=== PATIENT | male | born 2000 | race African-American/Black ===

== ENCOUNTER 2024-03-30 19:16 | Emergency (ER) | payer OTHER, SELFPAY ==
[2024-03-30 19:26] VITALS: BP 123/87; BP 131/86; PULSE 72; PULSE 80; RESP 13; TEMP 36.4; O2SAT 100; O2SAT 94; BMI 19.5
--- NOTE | 2024-03-30 19:28 | ED.SOB ---
HPI - SOB/Dyspnea General Chief Complaint: Dyspnea Stated Complaint: SOB, asthma exacerbation, wheezy Time Seen by Provider: 03/30/24 19:20 Source: patient Mode of arrival: EMS Limitations: no limitations History of Present Illness ED Provider: james HERNÁNDEZ Narrative: Patient's history of asthma been increased shortness a breath for last 24 hours tried to use inhaler and nebulizer treatment earlier today but still feeling short of breath no fever no chills history of same in the past with asthma Related Data Previous Rx's ?Medication ?Instructions ?Recorded albuterol sulfate 2.5 mg/3 mL 2.5 mg (3 mL) inhalation Q4-6H PRN 03/30/24 (0.083 %) solution for nebulization shortness of breath or wheezing #90 mL prednisone 20 mg tablet 40 mg (2 x 20 mg) PO DAILY #10 tabs 03/30/24 Allergies Allergy/AdvReac Type Severity Reaction Status Date / Time No Known Allergies Allergy Verified 03/30/24 19:28 Review of Systems Review of Systems: Yes all other systems are reviewed and are negative [facility] Social History Social History Smoked in Last 30 Days: No Use of substances other than those prescribed or required for medical reasons: Yes Substance Use Type: Marijuana Substance Use Frequency: Daily Last Used Substance: Hours (ago) Advance Directives: No Advance Directives Information Provided: No Do you have a plan to hurt others: No Plan Physical Exam Vital Signs: Vital Signs: Last Vital Signs Temp 97.8 F 03/30/24 22:09 Pulse 71 03/30/24 22:09 Resp 16 03/30/24 22:09 BP 118/64 03/30/24 22:09 Pulse Ox 99 03/30/24 22:09 O2 Del Method Room Air 03/30/24 22:09 BMI result Body Mass Index 19.5 Appearance: Alert. Oriented X3. No acute distress. ENT: Pharynx normal. Oral Mucosa moist Neck: Normal inspection. Neck supple. CVS: Normal heart rate and rhythm. Pulses normal. Respiratory: No respiratory distress. Equal air entry bilateral, bilateral wheezing and rhonchi no rales Skin: Skin warm and dry. Normal skin color. Normal skin turgor. Extremities: No lower extremity edema. Neuro: Oriented X 3. Medications Administered Discontinued Medications Generic Name Dose Route Start Last Admin Trade Name Jason PRN Reason Stop Dose Admin Albuterol Sulfate 7.5 mg/ 10 mg 03/30/24 19:55 03/30/24 19:58 Albuterol Sulfate 2.5 mg INHALE 03/30/24 19:56 10 mg ONCE ONE Administration Sodium Chloride 1,000 mls @ 999 mls/hr 03/30/24 19:23 03/30/24 19:41 Ns IV 03/30/24 20:23 999 mls/hr .Q1H1M ONE Administration Magnesium Sulfate 2 gm in 50 mls @ 150 mls/hr 03/30/24 19:23 03/30/24 19:41 Magnesium Sulfate/H2o IV 03/30/24 19:42 150 mls/hr ONCE ONE Administration Methylprednisolone Sodium Succinate 125 mg 03/30/24 19:23 03/30/24 19:41 Methylprednisolone Sod Succ 125 Mg/2 Ml Vial IVPUSH 03/30/24 19:24 125 mg ONCE ONE Administration Medical Decision Making Medical Decision Making [facility] Narrative: Patient has acute asthma attack responded to nebulizer treatment IV magnesium and Solu-Medrol feeling much better saturating 99 % at room air discharge patient home on prednisone advised to continue nebulizer treatment at home Lab Data [facility] Lab Attestation statement: I reviewed the patient's lab results. 03/30/24 19:38 03/30/24 19:38 Labs: Lab Results 03/30/24 Range/Units 19:38 WBC 7.6 (4.8-10.8) X10*3/uL RBC 4.63 (4.60-5.80) X10*6/uL Hgb 14.2 (14.0-18.0) g/dl Hct 39.9 L (42.0-52.0) % MCV 86.2 (80.0-98.0) fL MCH 30.7 (27.0-33.0) pg MCHC 35.6 (31.0-36.0) g/dl RDW 12.1 (11.0-16.0) % Plt Count 176 (160-400) X10*3/uL MPV 11.2 (9.4-12.4) fL Immature Gran % (Auto) 0.3 (0.0-0.4) % Neut % (Auto) 62.9 (45-73) % Lymph % (Auto) 19.7 L (20-40) % Trigg % (Auto) 9.0 (2-11) % Eos % (Auto) 7.4 H (0-4) % Baso % (Auto) 0.7 (0-2) % Lymph # (Auto) 1.5 (1.2-4.9) X10*3/uL Trigg # (Auto) 0.7 (0.1-1.2) X10*3/uL Eos # (Auto) 0.6 H (0.0-0.4) X10*3/uL Baso # (Auto) 0.1 (0.0-0.2) X10*3/uL Abs Immat Gran (auto) 0.02 (0.00-0.03) X10*3/uL Absolute Neuts (auto) 4.8 (2.0-8.3) x10*3/uL Absolute Nucleated RBC 0.000 (0.0-0.012) X10*3/uL Nucleated RBC % (auto) 0.0 (0.0-0.2) /100WBC Sodium 139 (135-145) mmol/L Potassium 3.5 (3.3-5.1) mmol/L Chloride 105 (96-108) mmol/L Carbon Dioxide 26 (22-29) mmol/L Anion Gap 12 (12-20) BUN 15 (9-16) mg/dL Creatinine 0.85 (0.5-1.4) mg/dL Estim Creat Clear Calc 116.9 Estimated GFR > 60 Random Glucose 87 (60-115) mg/dL Calcium 10.1 (8.4-10.2) mg/dL Influenza Type A (PCR) NEGATIVE (Negative) Influenza Type B (PCR) NEGATIVE (Negative) RSV RNA Qual (PCR) NEGATIVE (Negative) SARS-CoV-2 RNA (RT-PCR) NEGATIVE (Negative) Discharge Plan Discharge Clinical Impression: Asthma with exacerbation Patient Disposition: Home, Self-Care Instructions: Asthma (ED) Additional Instructions: Take medication as prescribed Use your nebulizer/inhaler as prescribed Follow up with your PCP Prescriptions: New albuterol sulfate 2.5 mg /3 mL (0.083 %) solution for nebulization 2.5 mg inhalation Q4-6H PRN (Reason: shortness of breath or wheezing) Qty: 90 0RF prednisone 20 mg tablet 40 mg PO DAILY Qty: 10 0RF Interventions: ED Discharge Assessment Last Done: 03/30/24 22:09 Discharge Date/Time: 03/30/24 22:42 Print Language: Barbadian
[2024-03-30 19:41] LABS: MANUAL DIFF FLAG NO
[2024-03-30] MEDS: Magnesium Sulfate/H2O 2 GM/50 ML PIGGYBACK IV (19:41)
[2024-03-30] MEDS: 0.9 % Sodium Chloride 1,000 ML 999 ML IV (19:41)
[2024-03-30] MEDS: methylPREDNISolone Sod Succ 125 MG/2 ML VIAL IVPUSH (19:41)
[2024-03-30 19:43] LABS: Basophils Absolute Auto 0.1 X10*3/uL (0.0-0.2); Basophils Percent Auto 0.7 % (0-2); Eosinophils Absolute Auto 0.6 X10*3/uL (0.0-0.4); Eosinophils Percent Auto 7.4 % (0-4); Hematocrit 39.9 % (42.0-52.0); Hemoglobin 14.2 g/dl (14.0-18.0); Imm Gran Abs Auto 0.02 X10*3/uL (0.00-0.03); Imm Gran Pct Auto 0.3 % (0.0-0.4); Lymphocytes Absolute Auto 1.5 X10*3/uL (1.2-4.9); Lymphocytes Percent Auto 19.7 % (20-40); Mean Corpuscular HGB Conc 35.6 g/dl (31.0-36.0); Mean Corpuscular Hemoglobin 30.7 pg (27.0-33.0); Mean Corpuscular Volume 86.2 fL (80.0-98.0); Mean Platelet Volume 11.2 fL (9.4-12.4); Monocytes Absolute Auto 0.7 X10*3/uL (0.1-1.2); Neutrophils Absolute Auto 4.8 x10*3/uL (2.0-8.3); Neutrophils Percent Auto 62.9 % (45-73); Platelet Count 176 X10*3/uL (160-400); Red Blood Count 4.63 X10*6/uL (4.60-5.80); Red Cell Distribution Width 12.1 % (11.0-16.0); White Blood Count 7.6 X10*3/uL (4.8-10.8)
[2024-03-30 19:54] LABS: Anion Gap 12 (12-20); Blood Urea Nitrogen 15 mg/dL (9-16); Calcium 10.1 mg/dL (8.4-10.2); Carbon Dioxide 26 mmol/L (22-29); Chloride 105 mmol/L (96-108); Creatinine Clr Calc Pharmacy 116.9; Estimated Glomerular Filt Rate > 60; Glucose Random 87 mg/dL (60-115); Potassium 3.5 mmol/L (3.3-5.1); Sodium 139 mmol/L (135-145)
[2024-03-30 19:58] VITALS: BP 116/100; PULSE 76; RESP 16; TEMP 36.9; O2SAT 100
[2024-03-30] MEDS: Albuterol Sulfate 7.5 MG, Albuterol Sulfate (0.083%) 2.5 MG 10 MG INHALE (19:58)
[2024-03-30 20:20] LABS: Influenza A PCR NEGATIVE (Negative); Influenza B PCR NEGATIVE (Negative); Resp Syncy Virus RNA Qual PCR NEGATIVE (Negative); SARS COV2 PCR INHOUSE NEGATIVE (Negative)
[2024-03-30 21:47] VITALS: PULSE 78; O2SAT 99
[2024-03-30 22:09] VITALS: BP 118/64; PULSE 71; RESP 16; TEMP 36.6; O2SAT 99
== END 2024-03-30 22:42 | disposition home or self-care (01) ==
PROVIDERS: Emergency Provider Internal Medicine
DX: J45.901 Unspecified asthma with (acute) exacerbation (principal); R06.02 Shortness of breath; Z03.818 Encounter for observation for suspected exposure to other biological agents ruled out; Z79.899 Other long term (current) drug therapy
CPT/HCPCS: 0241U; 80048; 85025; 96374; 96375; 99284; J2919; J3475